=== PATIENT | female | born 1955 | race Caucasian/White ===

== ENCOUNTER 2018-05-19 12:49 | Inpatient (IN) | payer OTHER ==
[~2018-05-19 12:49] MED LIST: CEFAZOLIN 1 GM INJ; DEXAMETHASONE 4 MG/ML 1 ML INJ; ONDANSETRON 4 MG INJ; VANCOMYCIN 1 GM/250 ML BAG
[2018-05-19 15:33] LABS: ADD MAN DIFF? NO
[2018-05-19 15:35] LABS: WHITE BLOOD COUNT 6.4 10^3/ul (4.8-10.8)
[2018-05-19 15:35] LABS: BASOPHILS % 0.5 % (0.0-2.0); EOSINOPHILS # 0.1 10^3/ul (0.0-0.5); EOSINOPHILS % 0.9 % (0.0-7.0); HEMATOCRIT 39.4 % (37.0-47.0); HEMOGLOBIN 12.9 g/dl (12.0-16.0); LYMPHOCYTES # 1.6 10^3/ul (0.8-2.9); LYMPHOCYTES % 24.3 % (15.0-51.0); MEAN CORPUSCULAR HEMOGLOBIN 28.9 pg (29.0-33.0); MEAN CORPUSCULAR HGB CONC 32.7 g/dl (32.0-37.0); MEAN CORPUSCULAR VOLUME 88.1 fl (82.0-101.0); MEAN PLATELET VOLUME 11.1 fl (7.4-10.4); MONOCYTE # 0.5 10^3/ul (0.3-0.9); MONOCYTES % 7.8 % (0.0-11.0); NEUTROPHIL # 4.3 10^3/ul (1.6-7.5); NEUTROPHILS % 66.3 % (39.0-77.0); PLATELET COUNT 261 10^3/UL (140-415); RED BLOOD COUNT 4.47 10^6/ul (4.20-5.40); RED CELL DISTRIBUTION WIDTH 14.1 % (11.5-14.5)
[2018-05-19 15:39] LABS: INR 0.95; PROTIME 12.8 Sec (11.9-14.9)
[2018-05-19 15:40] LABS: PARTIAL THROMBOPLASTIN TIME 29.2 Sec (25.0-35.0)
[2018-05-19 15:42] LABS: ALANINE AMINOTRANSFERASE 45 IU/L (13-69); ALKALINE PHOSPHATASE 97 IU/L (42-121); ANION GAP 15 (8-16); ASPARTATE AMINO TRANSFERASE 45 IU/L (15-46); BILIRUBIN,INDIRECT 0.6 mg/dl (0-1.1); BILIRUBIN,TOTAL 0.6 mg/dl (0.2-1.3); BLOOD UREA NITROGEN 19 mg/dl (7-20); CALCIUM 9.8 mg/dl (8.4-10.2); CARBON DIOXIDE 24 mmol/L (21-31); CHLORIDE 107 mmol/L (97-110); GLUCOSE 100 mg/dl (70-220); SODIUM 141 mmol/L (135-144)
[2018-05-19 15:43] LABS: ALBUMIN 4.3 g/dl (3.3-4.9); ALBUMIN/GLOBULIN RATIO 1.65; TOTAL PROTEIN 6.9 g/dl (6.1-8.1)
[2018-05-19 15:51] LABS: CREATININE 1.09 mg/dl (0.44-1.00); POTASSIUM 5.3 mmol/L (3.5-5.1)
[2018-05-19] MEDS ORDERED: FENTAnyl 50 MCG/ML VIAL (16:37)
[2018-05-19] MEDS ORDERED: MIDAZOLAM 1 MG/ML 2 ML INJ (16:37)
[2018-05-19] MEDS ORDERED: SUGAMMADEX SODIUM 200 MG/2 ML VIAL IV ×2 (16:40→21:09)
[2018-05-19] MEDS ORDERED: ROPIVACAINE 0.5 % 30 ML VIAL (17:01)
[2018-05-19] MEDS ORDERED: METOCLOPRAMIDE 10 MG INJ (17:04)
[2018-05-19] MEDS ORDERED: HYDROmorphONE 0.5 MG/0.5 ML SYG IV ×2 (17:30)
[2018-05-19] MEDS ORDERED: DIPHENHYDRAMINE 50 MG INJ IV ×2 (17:30)
[2018-05-19] MEDS ORDERED: HYDROmorphONE 0.2 MG/ML PCA IV (17:30)
[2018-05-19] MEDS ORDERED: KETOROLAC 30 MG INJ IV ×2 (17:30)
[2018-05-19] MEDS ORDERED: FENTAnyl 50 MCG/ML VIAL IV ×2 (17:30)
[2018-05-19] MEDS ORDERED: HYDROCODONE/APAP (5/325) TAB PO (17:30)
[2018-05-19] MEDS ORDERED: DIPHENHYDRAMINE 50 MG CAP PO (17:30)
[2018-05-19] MEDS ORDERED: NALOXONE (0.4 MG/ML) INJ IV (17:30)
[2018-05-19] MEDS ORDERED: MEPERIDINE 25 MG INJ IV (17:30)
[2018-05-19] MEDS ORDERED: ONDANSETRON 4 MG INJ IV ×3 (17:30→23:00)
[2018-05-19] MEDS ORDERED: ALBUMIN HUMAN 5% 250 ML IV (17:30)
[2018-05-19] MEDS ORDERED: HYDROmorphONE 1 MG/5 ML IV SYRINGE IV ×3 (17:30)
[2018-05-19] MEDS ORDERED: IPRATROPIUM (NEB) 0.5 MG/2.5 ML AMP HHN (17:30)
[2018-05-19] MEDS ORDERED: BISACODYL (EC) 5 MG TAB PO (17:30)
[2018-05-19] MEDS ORDERED: ZOLPIDEM 5 MG TAB PO ×2 (17:30)
[2018-05-19] MEDS ORDERED: THROMBIN 5000 UNIT VIAL ×2 (17:45→20:40)
[2018-05-19] MEDS ORDERED: POLYMYXIN/BACITRACIN 1L IRRIG (17:45)
[2018-05-19] MEDS ORDERED: BUPIVACAINE 0.5%/EPI (SDV) 30 ML INJ ×2 (17:45→20:05)
[2018-05-19] MEDS ORDERED: GLUCOSE GEL 15 GRAM TUBE PO ×2 (18:00)
[2018-05-19] MEDS ORDERED: GLUCAGON 1 MG INJ IM (18:00)
[2018-05-19] MEDS ORDERED: GLUCOSE GEL 15 GRAM TUBE BUCCAL (18:00)
[2018-05-19] MEDS ORDERED: DEXTROSE 50% 50 ML SYRINGE IV ×2 (18:00)
[2018-05-19] MEDS: BUPIVACAINE 0.5%/EPI (SDV) 30 ML INJ INJ (18:40)
[2018-05-19] MEDS ORDERED: PROPOFOL 20 ML (19:36)
[2018-05-19] MEDS ORDERED: ROCURONIUM 50 MG INJ ×2 (19:36)
[2018-05-19] MEDS ORDERED: SUCCINYLCHOLINE CHLORIDE 100 MG/5 ML SYG IV (19:37)
[2018-05-19] MEDS ORDERED: LIDOCAINE 2% (SDV) 5 ML INJ (19:37)
[2018-05-19] MEDS ORDERED: ACETAMINOPHEN 1000MG/100ML IV 100 ML (20:24)
[2018-05-19] MEDS ORDERED: metFORMIN 500 MG TAB PO (21:00)
[2018-05-19] MEDS: THROMBIN 5000 UNIT VIAL TOP (21:00)
[2018-05-19] MEDS ORDERED: GABAPENTIN 300 MG CAP PO (21:00)
[2018-05-19] MEDS: PIPER-TAZO 3.375 GM IV (PMX) 100 ML IVPB (21:46)
[2018-05-19] MEDS: HYDROmorphONE 1 MG/ML SYG IV ×2 (21:46→23:55)
[2018-05-19] MEDS: KETOROLAC 30 MG INJ IV ×2 (21:47→23:30)
[2018-05-19] MEDS ORDERED: ONDANSETRON 4 MG INJ (22:54)
[2018-05-19] MEDS: VANCOMYCIN 750 MG in SOD CHLORIDE 0.9% 150 ML IVPB (23:30)
[2018-05-19] MEDS: metFORMIN 500 MG TAB PO (23:30)
[2018-05-19] MEDS: GABAPENTIN 300 MG CAP PO (23:30)
[2018-05-19] MEDS: LACTATED RINGER'S 1,000 ML IV (23:30)
[2018-05-19] MEDS: ALPRAZOLAM 0.5 MG TAB PO (23:36)
[2018-05-19] MEDS: METOCLOPRAMIDE 10 MG TAB PO (23:55)
[2018-05-20] MEDS: PIPER-TAZO 3.375 GM IV (PMX) 100 ML IVPB ×5 (00:22→23:22)
[2018-05-20] MEDS: METOCLOPRAMIDE 10 MG TAB PO ×5 (00:23→23:23)
[2018-05-20] MEDS: KETOROLAC 30 MG INJ IV ×4 (05:21→23:23)
[2018-05-20 05:29] LABS: ADD MAN DIFF? NO
[2018-05-20] MEDS: LACTATED RINGER'S 1,000 ML IV ×3 (05:32→17:45)
[2018-05-20 05:35] LABS: ABNORMAL IP MESSAGE 1; BASOPHILS % 0.1 % (0.0-2.0); HEMATOCRIT 36.2 % (37.0-47.0); HEMOGLOBIN 11.6 g/dl (12.0-16.0); LYMPHOCYTES # 0.4 10^3/ul (0.8-2.9); LYMPHOCYTES % 4.8 % (15.0-51.0); MEAN CORPUSCULAR HEMOGLOBIN 28.8 pg (29.0-33.0); MEAN CORPUSCULAR VOLUME 89.8 fl (82.0-101.0); MEAN PLATELET VOLUME 10.7 fl (7.4-10.4); MONOCYTE # 0.2 10^3/ul (0.3-0.9); MONOCYTES % 1.8 % (0.0-11.0); NEUTROPHIL # 8.5 10^3/ul (1.6-7.5); PLATELET COUNT 190 10^3/UL (140-415); RED BLOOD COUNT 4.03 10^6/ul (4.20-5.40)
[2018-05-20 05:35] LABS: WHITE BLOOD COUNT 9.1 10^3/ul (4.8-10.8)
[2018-05-20 05:48] LABS: POSITIVE DIFF @See below
[2018-05-20 07:18] LABS: ANION GAP 14 (8-16); BLOOD UREA NITROGEN 14 mg/dl (7-20); CARBON DIOXIDE 19 mmol/L (21-31); CHLORIDE 113 mmol/L (97-110); CREATININE 0.64 mg/dl (0.44-1.00); POTASSIUM 5.1 mmol/L (3.5-5.1); SODIUM 141 mmol/L (135-144)
[2018-05-20] MEDS ORDERED: METOPROLOL (XL) 100 MG TAB PO (09:00)
[2018-05-20] MEDS: ENOXAPARIN 30 MG/0.3 ML SYG SC ×3 (09:00→23:27)
[2018-05-20] MEDS ORDERED: LOSARTAN 50 MG TAB PO (09:00)
[2018-05-20] MEDS ORDERED: AMLODIPINE 2.5 MG TAB PO (09:00)
[2018-05-20] MEDS ORDERED: LISINOPRIL 10 MG TAB PO (09:00)
[2018-05-20] MEDS: metFORMIN 500 MG TAB PO ×2 (09:00→20:28)
[2018-05-20] MEDS: FLUCONAZOLE 200 MG TAB PO (09:56)
[2018-05-20] MEDS: LOSARTAN 50 MG TAB PO (09:56)
[2018-05-20] MEDS: AMLODIPINE 5 MG TAB PO (09:57)
[2018-05-20] MEDS: METOPROLOL (XL) 100 MG TAB PO (09:57)
[2018-05-20] MEDS: LISINOPRIL 10 MG TAB PO (09:57)
[2018-05-20] MEDS: GABAPENTIN 300 MG CAP PO (20:28)
[2018-05-20] MEDS: VANCOMYCIN 750 MG in SOD CHLORIDE 0.9% 150 ML IVPB (20:29)
[2018-05-20] MEDS: ALPRAZOLAM 0.5 MG TAB PO (22:48)
[2018-05-21] MEDS: LACTATED RINGER'S 1,000 ML IV ×2 (00:48→13:20)
[2018-05-21] MEDS: HYDROCODONE/APAP (5/325) TAB PO (01:21)
[2018-05-21 05:52] LABS: ADD MAN DIFF? NO
[2018-05-21] MEDS: PIPER-TAZO 3.375 GM IV (PMX) 100 ML IVPB ×2 (05:53→12:31)
[2018-05-21] MEDS: METOCLOPRAMIDE 10 MG TAB PO ×2 (05:54→12:31)
[2018-05-21] MEDS: KETOROLAC 30 MG INJ IV ×3 (05:54→17:27)
[2018-05-21 05:55] LABS: BASOPHILS % 0.3 % (0.0-2.0); EOSINOPHILS # 0.1 10^3/ul (0.0-0.5); HEMOGLOBIN 10.4 g/dl (12.0-16.0); LYMPHOCYTES % 33.8 % (15.0-51.0); MEAN CORPUSCULAR HGB CONC 32.5 g/dl (32.0-37.0); MEAN CORPUSCULAR VOLUME 89.1 fl (82.0-101.0); MEAN PLATELET VOLUME 11.7 fl (7.4-10.4); MONOCYTE # 0.4 10^3/ul (0.3-0.9); MONOCYTES % 6.5 % (0.0-11.0); NEUTROPHIL # 3.5 10^3/ul (1.6-7.5); NEUTROPHILS % 58.2 % (39.0-77.0); PLATELET COUNT 158 10^3/UL (140-415); RED BLOOD COUNT 3.59 10^6/ul (4.20-5.40); RED CELL DISTRIBUTION WIDTH 14.4 % (11.5-14.5)
[2018-05-21] MEDS: metFORMIN 500 MG TAB PO (08:41)
[2018-05-21] MEDS: FLUCONAZOLE 200 MG TAB PO (08:41)
[2018-05-21] MEDS: LISINOPRIL 10 MG TAB PO (08:41)
[2018-05-21] MEDS: AMLODIPINE 5 MG TAB PO (08:41)
[2018-05-21] MEDS: LOSARTAN 50 MG TAB PO (08:42)
[2018-05-21] MEDS: ENOXAPARIN 30 MG/0.3 ML SYG SC (08:44)
[2018-05-21] MEDS: METOPROLOL (XL) 100 MG TAB PO (08:52)
[2018-05-21] MEDS: ALPRAZOLAM 0.5 MG TAB PO (16:51)
== END 2018-05-21 17:20 | disposition home or self-care (01) | DRG 743 ==
LOC: REC 12:49 → MS1 23:10
PROVIDERS: Obstetrics & Gynecology
PROC: 0UT97ZZ Resection of Uterus, Via Natural or Artificial Opening (ICD-10-PCS; principal; 2018-05-19 16:30)
PROC: 0TSD0ZZ Reposition Urethra, Open Approach (ICD-10-PCS; 2018-05-19 16:30)
PROC: 0JQC0ZZ Repair Pelvic Region Subcutaneous Tissue and Fascia, Open Approach (ICD-10-PCS; 2018-05-19 16:30)
DX: N81.3 Complete uterovaginal prolapse (principal); N39.46 Mixed incontinence; I10 Essential (primary) hypertension; E11.9 Type 2 diabetes mellitus without complications; K59.00 Constipation, unspecified; E66.01 Morbid (severe) obesity due to excess calories; Z68.37 Body mass index [BMI] 37.0-37.9, adult; Z79.84 Long term (current) use of oral hypoglycemic drugs
CPT/HCPCS: 80051; 80053; 82565; 82962; 84132; 84520; 85025; 85610; 85730; 86850; 86900; 86901; 87086; 88305; 93005

== ENCOUNTER 2018-11-15 07:15 | Day surgery (SDC) | payer OTHER ==
[~2018-11-15 07:15] MED LIST changes: -CEFAZOLIN 1 GM INJ; -DEXAMETHASONE 4 MG/ML 1 ML INJ; -ONDANSETRON 4 MG INJ; +PROPOFOL 200 MG INJ; -VANCOMYCIN 1 GM/250 ML BAG
[2018-11-15] MEDS ORDERED: MIDAZOLAM 1 MG/ML 2 ML INJ (08:36)
[2018-11-15] MEDS ORDERED: LIDOCAINE 2% (SDV) 5 ML INJ (08:36)
[2018-11-15] MEDS ORDERED: PROPOFOL 40 ML (08:36)
== END 2018-11-15 11:10 | disposition home or self-care (01) ==
LOC: GIL 07:15
DX: Z12.11 Encounter for screening for malignant neoplasm of colon (principal); K64.8 Other hemorrhoids; D12.0 Benign neoplasm of cecum; E78.5 Hyperlipidemia, unspecified; I10 Essential (primary) hypertension; E11.9 Type 2 diabetes mellitus without complications
CPT/HCPCS: 45380; 82962; 88305